=== PATIENT | male | born 1950 | race Caucasian/White ===

== ENCOUNTER 2017-11-13 05:45 | Inpatient (IN) | payer OTHER ==
[2017-11-13] MEDS ORDERED: GABAPENTIN 300 MG CAP PO ONE (05:58)
[2017-11-13] MEDS ORDERED: morphINE PF 5 MG/10 ML INJ IT ONE (05:58)
[2017-11-13] MEDS ORDERED: ceFAZolin 2 GM/SWFI 2 GM/20 ML SYR IVP ONE (05:58)
[2017-11-13] MEDS ORDERED: ACETAMINOPHEN 500 MG TAB PO ONE (05:58)
[2017-11-13] MEDS ORDERED: LR 1,000 ML IV ONE (05:59)
[2017-11-13] MEDS ORDERED: LIDOCAINE 1% 2 ML INJ ID PRN (05:59)
[2017-11-13] MEDS ORDERED: BUPIVACAINE 0.25% 30 ML SDV ONE (06:24)
[2017-11-13] MEDS ORDERED: THROMBIN (BOVINE) 20,000 UNIT VIAL TP ONE (06:24)
[2017-11-13] MEDS ORDERED: CHLORHEXIDINE GLUC HIBICLENS 118 ML BTL TP ONE (06:24)
[2017-11-13] MEDS ORDERED: BACITRACIN 50,000 UNITS/10 ML SYR IRR ONE (06:25)
--- NOTE | 2017-11-13 06:46 | PDGENHP ---
History and Physical - Chief Complaint back pain - History of Present Illness Patient came to clinic for his low back issues. He previously underwent a left sided L4/[address] Contreras Oct 2004. Surgery was for back and leg pain and he does not feel surgery helped. He noted worsening low back pain following that surgery. He has been seeing Pain Management with facet ablations ever [address] Grimm in [place]. More recently he has noted that the pain is now radiating into the left leg as well. He went to Dr Upton in [place] at [facility] and came to clinic for an opinion. The pain is located into the left low back and will radiate into the lateral thigh and into the left lateral calf and into the left lateral ankle. Pain is like an aching pain. Denies any weakness. No symptoms into the right leg. No associated trauma or injury Denies any bowel or bladder incontinence. Pain Scale Worse: 7/10 Best: 3/10 Pain Worsened with: lifting, pulling Pain Improved with: exercise, walking Modalities tried: Spinal injections Dr Grimm February 2016 - L4/5/S1 bilateral facet ablation Physical Therapy no Gyro Compass Tester no Pain Medications celebrex ibuprofen tylenol Muscle Relaxants no Gabapentin no Lyrica no Oral steroids or Medrol Dose Pack no Mr Bartholomew came to clinic for a several year history of ongoing low back pain and left leg radiculopathy. His symptoms have been treated and stable with injections/ablations with Dr Head in [facility]. Dr Pressley reviewed his lumbar spine MRI which shows a previous left sided L4/5 hemilaminotomy with severe foraminal stenosis and nerve compression. There is severe disc height loss at the L4/5/S1 levels with advanced degenerative changes. Dr Pressley discussed the risks, benefits, and various treatment alternatives, including no intervention. He is interested in surgery because he has been getting injections into his spine every 2 years since about 2004. He is also taking Celebrex and Ibuprofen for pain control, but he is seeking a permanent intervention for his symptoms as he likes to be very active. With regards to the surgical intervention, we discussed the pre and post-op expectations and the procedure in great detail. Surgery would entail a redo left sided L4/5 facetectomy/hemilaminotomy and TLIF with left sided L5/S1 TLIF and posterior fusion L4-S1. We also discussed the increased risk of the procedure given that it is a redo level. The patient elected to move forward with surgery. Mr. Bartholomew presents today for surgery and wishes to proceed with the above mentioned procedure. History Information - Allergies/Home Medication List Allergies/Adverse Reactions: No Known Allergies Allergy (Verified 10/13/17 17:44) Home Medications: Pravastatin Sodium [Pravachol] 40 mg PO DAILY 10/11/17 [Last Taken 11/12/17 21: 00] Ranitidine HCl [Zantac] 300 mg PO BID 10/11/17 [Last Taken 11/13/17 05:00] Tamsulosin HCl [Flomax 0.4 MG (*)] 0.4 mg PO DAILY 10/11/17 [Last Taken 05:00] Testosterone 60 gm TD DAILY 10/11/17 [Last Taken 11/11/17] Valacyclovir HCl [Valtrex] 1,000 mg PO DAILY 10/11/17 [Last Taken 11/12/17 21:00 ] I have personally reviewed and updated: family history (non contributory), medical history, social history (non smoker, social ETOH use), surgical history (L45 spine surgery) - Social History Smoking Status: Never smoked Review of Systems Review of Systems: Constitutional: Reports: no symptoms EENMT: Reports: no symptoms Cardiac: Reports: no symptoms Respiratory: Reports: no symptoms Gastrointestinal: Reports: no symptoms Genitourinary: Reports: no symptoms Muscolosketal: Reports: back pain Skin: Reports: no symptoms Physical Exam Physical Exam: Temp Pulse Resp BP Pulse Ox 36.6 C 69 16 139/83 H 94 11/13/17 06:14 11/13/17 06:14 11/13/17 06:14 11/13/17 06:14 11/13/17 06:14 Constitutional: no apparent distress, other (VSS) Eyes: EOMI Ears, Nose, Mouth, Throat: moist mucous membranes Skin: normal color Neurologic: AAOx3, other (MAEx4, Motor 5/5 BUE/BLE with the exception of L great toe 5-/5) Lab Data & Imaging Review Imaging Review: Pt's lumbar spine MRI was reviewed and demonstrates: [facility] MRI lumbar spine WO con IMPRESSION: status post left hemilaminotomy at L4-5 with loss in height of the intervertebral disc, mild annular disc bulge, and a 5mm left foraminal through far left lateral protrusion with marginal osteophytic changes. moderate left L4 - L5 subarticular recess narrowing with impingement on the left L5 nerve root an severe left neural foraminal narrowing. loss in height of the L5-S1 intervertebral disc with a mild annular disc bulge with marginal osteophytic changes greatest on the right laterally. Moderate righ neural foraminal narrowing. loss in chuckie of the L2-3 and L3-4 intervertebral disc with an annular disc bulge. loss in chuckie of the L1-2 intervertebral disc with a mild annular disc bulge and a small right foraminal protrusion. Mild right neural foraminal narrowing. Assessment & Plan Assessment: 67 yo M with low back and left leg radiculopathy, imaging demonstrates prior left sided L4/5 hemilaminotomy with severe foraminal stenosis and nerve compression, disc height loss L4/5/S1 with advanced degenerative changes. He presents today for redo left sided L4/5 facetectomy/hemilaminotomy and TLIF with left sided L5/S1 TLIF and posterior fusion L4-S1. Plan: Dr. Pressley has discussed the risks/benefits of surgery with Mr. Bartholomew and written informed consent was obtained to proceed with redo left sided L4/5 facetectomy/hemilaminotomy and TLIF with left sided L5/S1 TLIF and posterior fusion L4-S1. All questions were answered and patient agrees and wishes to proceed with the plan. Patient was marked. D/w Dr Pressley.
--- NOTE | 2017-11-13 07:13 | PDHPUP ---
History & Physical Update H&P update statement: This history and physical update is based on an assessment of the patient which was completed after admission or registration (within 24 hours), but prior to the surgery/procedure. H&P update: H&P reviewed & patient examined, no change in patient's condition since H&P completed (I met with the patient this morning and reviewed the surgical procedure and complications. He wishes to proceed. Consents have been signed and site marked.)
[2017-11-13] MEDS ORDERED: ALBUTEROL 3 ML DEYVIAL IH PRN (07:19)
[2017-11-13] MEDS ORDERED: HYDROmorphONE/DILAUDID 1 MG/ML INJ IVP PRN ×2 (07:19→12:27)
[2017-11-13] MEDS ORDERED: MIDAZOLAM 2 MG/2 ML VIAL IVP ONE (07:19)
[2017-11-13] MEDS ORDERED: ONDANSETRON 4 MG/2 ML VIAL IVP PRN (07:19)
[2017-11-13] MEDS ORDERED: NALOXONE HCL 0.4 MG/ML INJ IVP PRN (07:19)
[2017-11-13] MEDS ORDERED: DEXAMETHASONE 4 MG/ML VIAL IVP PRN (07:19)
[2017-11-13] MEDS ORDERED: fentaNYL 100 MCG/2 ML INJ IVP PRN (07:19)
--- NOTE | 2017-11-13 07:20 | PDANEPAE ---
ANE History of Present Illness L4-L5 TLIF ANE Past Medical History - Cardiovascular History Hx Hypertension: No Hx Arrhythmias: No Hx Chest Pain: No Hx Coronary Artery / Peripheral Vascular Disease: No Hx CHF / Valvular Disease: No Hx Palpitations: No - Pulmonary History Hx COPD: No Hx Asthma/Reactive Airway Disease: No Hx Recent Upper Respiratory Infection: No Hx Oxygen in Use at Home: No Hx Sleep Apnea: No Sleep Apnea Screening Result - Last Documented: Negative - Neurologic History Hx Cerebrovascular Accident: No Hx Seizures: No Hx Dementia: No - Endocrine History Hx Diabetes: No - Renal History Hx Renal Disorders: No - Liver History Hx Hepatic Disorders: No - Neurological & Psychiatric Hx Hx Neurological and Psychiatric Disorders: No - Cancer History Hx Cancer: No - Congenital Disorder History Hx Congenital Disorders: No - GI History Hx Gastrointestinal Disorders: Yes Gastrointestinal History Comment: reflux,gerd - Other Health History Other Health History: none - Chronic Pain History Chronic Pain: Yes (L shoulder,neck) - Surgical History Prior Surgeries: knee scope ANE Review of Systems Review of Systems: - Exercise capacity METS (RN): 4 METS ANE Patient History - Allergies Allergies/Adverse Reactions: No Known Allergies Allergy (Verified 10/13/17 17:44) - Home Medications Home Medications: Pravastatin Sodium [Pravachol] 40 mg PO DAILY 10/11/17 [Last Taken 11/12/17 21: 00] Ranitidine HCl [Zantac] 300 mg PO BID 10/11/17 [Last Taken 11/13/17 05:00] Tamsulosin HCl [Flomax 0.4 MG (*)] 0.4 mg PO DAILY 10/11/17 [Last Taken 05:00] Testosterone 60 gm TD DAILY 10/11/17 [Last Taken 11/11/17] Valacyclovir HCl [Valtrex] 1,000 mg PO DAILY 10/11/17 [Last Taken 11/12/17 21:00 ] - NPO status NPO Since - Liquids (Date): 11/12/17 NPO Since - Liquids (Time): 18:00 NPO Since - Solids (Date): 11/12/17 NPO Since - Solids (Time): 18:00 - Smoking Hx Smoking Status: Never smoked - Family Anes Hx Family Hx Anesthesia Complications: none ANE Labs/Vital Signs - Vital Signs Blood Pressure: 139/83 Heart Rate: 69 Respiratory Rate: 16 O2 Sat (%): 94 Height: 177.8 cm Weight: 72.575 kg ANE Physical Exam - Airway Neck exam: FROM Mallampati Score: Class 2 - Pulmonary Pulmonary: clear to auscultation - Cardiovascular Cardiovascular: regular rate and rhythym - ASA Status ASA Status: II ANE Anesthesia Plan Anesthesia Plan: general endotracheal anesthesia
[2017-11-13] MEDS ORDERED: PROPOFOL/EMULSION 500 MG/50 ML BOTTLE IV ONE ×4 (07:35→10:40)
[2017-11-13] MEDS ORDERED: REMIFENTANIL HCL 1 MG VIAL ONE ×4 (07:38→10:42)
[2017-11-13] MEDS ORDERED: SUCCINYLCHOLINE CHLORIDE 200 MG/10 ML SYR IVP ONE (07:46)
[2017-11-13] MEDS ORDERED: PHENYLEPHRINE HCL 100 MCG/ML SYR ONE (08:10)
[2017-11-13] MEDS ORDERED: ROCURONIUM 50 MG/5 ML VIAL ONE (08:10)
[2017-11-13] MEDS ORDERED: morphINE PF 5 MG/10 ML INJ ONE (09:11)
[2017-11-13] MEDS ORDERED: VASOPRESSIN 20 UNIT/ML VIAL ONE (09:48)
[2017-11-13] MEDS ORDERED: HYDROmorphONE/DILAUDID 2 MG/ML INJ ONE (10:43)
[2017-11-13] MEDS ORDERED: DEXAMETHASONE 4 MG/ML VIAL ONE ×2 (11:36)
[2017-11-13] MEDS ORDERED: ONDANSETRON 4 MG/2 ML VIAL ONE (11:36)
--- NOTE | 2017-11-13 12:08 | POSTANESTH ---
Post Anesthetic Evaluation Cardiovascular Status: Normal, Stable Respiratory Status: Normal, Stable Level of Consciousness/Mental Status: Can Participate in Eval, Alert and Oriented Pain Control: Adequate, Prn Tx Ordered Nausea/Vomiting Control: Adequate, Prn Tx Ordered Complications Possibly Related to Anesthesia: None Noted
[2017-11-13] MEDS ORDERED: MAGNESIUM HYDROXIDE 30 ML UDCUP PO PRN (12:27)
[2017-11-13] MEDS ORDERED: diphenhydrAMINE 25 MG CAP PO PRN (12:27)
[2017-11-13] MEDS ORDERED: BISACODYL 10 MG SUPP PR PRN (12:27)
[2017-11-13] MEDS ORDERED: LACTULOSE 20 GM/30 ML UDCUP PO PRN (12:27)
[2017-11-13] MEDS ORDERED: POLYETHYLENE GLYCOL 3350 17 GM PKT PO PRN (12:27)
[2017-11-13] MEDS ORDERED: NS W/ 20 KCl/L 1,000 ML IV SCH (12:30)
--- NOTE | 2017-11-13 12:34 | POSTOPPROG ---
Post Op Note Date of Operation: 11/13/17 Surgeon: Jody Lal Sap Bw Architect: Marcio Lal PA-C Anesthesiologist: Frandy Anesthesia: GET(General Endotracheal) Pre-op Diagnosis: lumbar degenerative disc disease Post-op Diagnosis: same Indication: nerve pain, radiculopathy Procedure: redo L45 TLIF, L5S1 TLIF, L4-S1 PSF Findings: Please see dictation Inf/Abcess present in the surg proc area at time of surgery?: No Depth: Organ Space EBL: 100-500 Complications: none Drains: Dinesh Darden Specimen(s): none PA Addendum - Addendum .: S: Pt awake in PACU, denies pain O: AAOx3 NAD VSS MAEx4 Motor 5/5 BUE/BLE with exception of L EHL 5-/5 +LT Incision cdi A: 67 yo M s/p redo L45 TLIF, L5S1 TLIF, L4-S1 PSF P: PT/OT Brace when OOB TEDs, SCDs, lovenox POD#1 urinary retention - pt states he has had issues with retention post op, home dose of flomax increased from 0.4mg to 0.8mg bowel protocol Post op xrays pending DC gonzales in AM Pain management - duramorph given Pt seen by Dr Pressley as well Call NS with any questions or concerns
--- NOTE | 2017-11-13 14:07 | GOP ---
[f rep st] OPERATIVE REPORT DATE OF OPERATION: 11/13/2017 SURGEON: Ger Pressley MD THEATRICAL AGENT: BRAYAN Valencia. ANESTHESIA: General. PREOPERATIVE DIAGNOSIS: 1. Lumbar spondylosis L4-L5 and L5-S1 with bilateral lateral recess foraminal stenosis left side L4-L5 and right side L5-S1. 2. Lower extremity radiculopathy, left greater than right. 3. Left lower extremity weakness. 4. Treatment refractory to nonoperative intervention. POSTOPERATIVE DIAGNOSIS: 1. Lumbar spondylosis L4-L5 and L5-S1 with bilateral lateral recess foraminal stenosis left side L4-L5 and right side L5-S1. 2. Lower extremity radiculopathy, left greater than right. 3. Left lower extremity weakness. 4. Treatment refractory to nonoperative intervention. PROCEDURE PERFORMED: 1. Posterior arthrodesis with approach to L4, L5, and S1. 2. Posterolateral fusion with bilateral pedicle screw placement into L4, L5, and S1 from the [employer] 4.75 system. 3. Left-sided L4-L5 redo hemilaminotomy, medial facetectomy, foraminotomy, and nerve root decompression. 4. Left-sided L4-L5 transforaminal lumbar interbody fusion with an 8 x 23 mm titanium-coated PEEK cage filled with morselized autograft and allograft. 5. Left-sided L5-S1 hemilaminotomy with mesial facetectomy, foraminotomy, and nerve decompression. 6. Left-sided L5-S1 transforaminal lumbar interbody fusion with an 8 x 26 mm titanium-coated PEEK cage filled with morselized autograft and allograft. 7. Use of intraoperative fluoroscopy, less than 1 hour physician time. 8. Use of neuromonitoring. 9. Use of intraoperative 3D Stealth Navigation. 10. Posterolateral fusion on the right between L4 and S1 with morselized autograft and allograft. 11. Injection of preservative-free intrathecal narcotics. FINDINGS: per imaging SPECIMENS: None. ESTIMATED BLOOD LOSS: 150 mL. INDICATIONS: The patient is a 67-year-old gentleman who has ongoing low back pain with left lower extremity radiculopathy including some left-sided weakness of his foot. He had evidence of spondylosis at L4-L5 and L5-S1. After discussion of the risks, benefits, and treatment alternatives after failing nonoperative intervention, he decided to proceed forth with the surgery as described above. DESCRIPTION OF PROCEDURE: The patient was brought to the operating theater and underwent general endotracheal anesthesia without complications. He had Venodynes, HIRAM hose, and appropriate lines placed by Anesthesia. He was flipped prone to the Dinesh table, and all bony processes were inspected and were padded. The previous lumbar incision was identified. This area then marked. A time-out was completed per protocol and the patient received antibiotics within 1 hour of incision. The incision was infiltrated with Marcaine with epinephrine and taken down with the scalpel blade. Using monopolar, the incision was taken down the midline through the lumbodorsal fascia and a subperiosteal dissection carried out to the transverse processes bilaterally of L4, L5, and S1. Care was taken to avoid the previous hemilaminotomy defect at the left L4-5 level. Deep retractors were placed to maintain our exposure. We confirmed our level using the lateral fluoroscopy. We attached the 3D Stealth Navigation clamp to the spinous process of L5 and completed a 3D Stealth Navigation spin. Using 3D Stealth Navigation, we placed the captain airline pilot holes for the bilateral pedicle screws into L4, L5, and S1. All holes were manually palpated with no evidence of any cortical breaches. We then tapped and placed 6.5 x 55 mm screws bilaterally in L4, L5, and 6.5 x 50 mm screws bilaterally in S1 from the [employer] Solera 4.75 system. Another 3D Stealth Navigation spin demonstrated good placement of the hardware. At this point the microscope was brought into the field to assist with microscopic dissection and to maintain illumination and magnification. We first moved up to L4-5 level where we completed a left-sided redo hemilaminotomy at the L4-5 level with an aggressive facetectomy resection of the pars and completed a foraminotomy. We then completed a left-sided L4-5 diskectomy and prepared the cartilaginous endplates. We measured the interbody space and placed an 8 x 26 mm titanium-coated PEEK cage filled with morselized autograft and allograft anteriorly and towards the midline. We packed additional morcellized autograft into the disk space for the interbody fusion and let down the distraction. We then moved down to L5-S1 where we completed a left-sided L5-S1 facetectomy with resection of the pars and foraminotomy and nerve decompression. We completed a left-sided L5-S1 diskectomy and prepared the cartilaginous endplates. We measured the interbody space and placed an 8 x 26 mm titanium-coated PEEK cage filled with morselized autograft and allograft anteriorly and towards the midline. We packed an additional morcellized autograft into the disk space for the interbody fusion. We let down the distraction and decorticated the bone on the right side between L4 and S1. We irrigated the wound copiously with bacitracin irrigation. We placed 2 lordotic rods into the heads of the screws between L4 and S1 and secured them down with cap screws which were then tightened per the insurance account manager 's setting. We placed morselized autograft and allograft on the right side between L4 and S1 for the posterolateral fusion. We injected preservative-free intrathecal narcotics and left a drain in the subfascial space. The wound was then closed in multiple layers using Vicryl sutures for the deep layers and Dermabond for the skin. The patient's wounds were dressed sterilely. He was flipped supine onto the transfer cart where he was awakened, extubated, and taken to recovery room in stable condition. There were no complications and no noted changes on neuromonitoring throughout the procedure. COMPLICATIONS: None. /[id number]/MODL MTDD
[2017-11-13] MEDS: ACETAMINOPHEN 500 MG TAB PO SCH ×2 (18:17→22:18)
[2017-11-13] MEDS: ceFAZolin 2 GM/DEXTROSE 100 ML IV SCH ×2 (18:21→23:53)
[2017-11-13] MEDS: ONDANSETRON 4 MG/2 ML VIAL IVP PRN (18:27)
[2017-11-13] MEDS: POLYETHYLENE GLYCOL 3350 17 GM PKT PO SCH ×2 (18:51→22:19)
[2017-11-13] MEDS ORDERED: NON-FORMULARY NEW DRUG (Ranitidine Hcl [Zantac] 300 MG) PO SCH (21:00)
[2017-11-13] MEDS ORDERED: SENNOSIDES 17.6 MG/10 ML UDL PO SCH (21:00)
[2017-11-13] MEDS: ONDANSETRON DISINTEGRATING 4 MG TAB PO PRN (22:17)
[2017-11-13] MEDS: FAMOTIDINE 20 MG TAB PO SCH (22:18)
[2017-11-13] MEDS: SENNOSIDES/DOCUSATE SODIUM TAB PO SCH (22:18)
[2017-11-13] MEDS: PRAVASTATIN SODIUM 40 MG TAB PO SCH (22:29)
[2017-11-13] MEDS: METHOCARBAMOL 750 MG TAB PO PRN (22:30)
[2017-11-13] MEDS: MELATONIN 3 MG TAB PO SCH (22:38)
[2017-11-14] MEDS: POLYETHYLENE GLYCOL 3350 17 GM PKT PO SCH ×4 (02:25→20:12)
[2017-11-14] MEDS: oxyCODONE IR 5 MG TAB PO PRN ×3 (04:38→22:07)
[2017-11-14] MEDS: ONDANSETRON 4 MG/2 ML VIAL IVP PRN (05:06)
[2017-11-14] MEDS: ACETAMINOPHEN 500 MG TAB PO SCH ×3 (05:59→22:09)
[2017-11-14] MEDS: METHOCARBAMOL 750 MG TAB PO PRN (05:59)
[2017-11-14] MEDS ORDERED: DIAZEPAM 5 MG TAB PO PRN (08:04)
[2017-11-14] MEDS ORDERED: SCOPOLAMINE HYDROBROMIDE 1 MG/3 DAYS PATCH TD SCH (08:15)
[2017-11-14] MEDS: SENNOSIDES/DOCUSATE SODIUM TAB PO SCH ×2 (08:19→20:13)
[2017-11-14] MEDS: TAMSULOSIN HCL 0.4 MG CAP PO SCH (08:19)
[2017-11-14] MEDS: valACYclovir 500 MG TAB PO SCH (08:19)
[2017-11-14] MEDS: FAMOTIDINE 20 MG TAB PO SCH ×2 (08:19→20:13)
[2017-11-14] MEDS: ENOXAPARIN 40 MG/0.4 ML SYR SC SCH (08:20)
[2017-11-14] MEDS: TESTOSTERONE TD SCH (08:27)
--- NOTE | 2017-11-14 08:34 | NEUSURGPN ---
Assessment/Plan: A: 67 yo M s/p redo L45 TLIF, L5S1 TLIF, L4-S1 PSF POD#1 P: PT/OT Brace when OOB TEDs, SCDs, lovenox POD#1 urinary retention - pt states he has had issues with retention post op, home dose of flomax increased from 0.4mg to 0.8mg. DC gonzales this AM after meds/ breakfast bowel protocol Add scopolomine patch for nausea add valium, can take before bed as may help him fall asleep. Discussed that we do not Rx sleep meds Post op xrays pending Pain management - duramorph given Pt seen by Dr Pressley as well Call NS with any questions or concerns Subjective: Pt resting in bed, he did not sleep well last pm. Vomited several times after eating. Denies significant back or leg pain. Objective: AAOx3 NAD VSS MAEx4 Motor 5/5 BLE +LT EMILY drain productive Gonzales in place Urinary Catheter in Place: Yes Urinary Catheter Indication: Surgical Requirement (to be removed today) Catheter Insertion Date: 11/13/17 - Physician Discussed Patient with : Wendie Patient Seen by : Wendie Neurosurgery Physical Exam - Vitals, I&O, Labs I and O 11/13/17 11/14/17 11/15/17 05:59 05:59 05:59 Intake Total 2780 450 Output Total 1060 Balance 1720 450 Weight 72.575 kg Intake: Oral (ml) 100 450 IV Intake (ml) 1800 IV Infused (ml) 880 NS W/ 20 KCl/L 1,000 ml @ 660 75 mls/hr IV CONT PATRICK Rx #:[id number] ceFAZolin 2 GM/DEXTROSE 220 100 ml @ 200 mls/hr IV Q8H PATRICK Rx#:[id number] Output: Urine (ml) 770 Catheter 770 EMILY Drain Output (ml) 290 #1 Right Posterior Back 290 Dinesh Darden Other: Intake Quantity Yes Sufficient Number of Emesis 1 Occurrences Vital Signs Temp Pulse Resp BP Pulse Ox 36.7 C 71 16 109/62 94 11/14/17 08:00 11/14/17 08:00 11/14/17 08:00 11/14/17 08:00 11/14/17 08:00 ICD10 Worksheet Patient Problems: Problems Problem Status Onset Lumbar degenerative disc disease Acute - ICD10 Problem Qualifiers (1) Lumbar degenerative disc disease
[2017-11-14] MEDS ORDERED: NON-FORMULARY NEW DRUG (Valacyclovir Hcl [Valtrex] 1,000 MG) PO SCH (09:00)
[2017-11-14] MEDS: ONDANSETRON DISINTEGRATING 4 MG TAB PO PRN (09:57)
--- NOTE | 2017-11-14 15:05 | ASMTCMCOM ---
CM Note CM Note Notes: PT/OT clear pt for home. Anticipate pt will d/c w family support when medically stable. No CM d/c needs identified at this time. CM available for changes/needs. Date Signed: 11/14/2017 03:04 PM Electronically Signed By:SHANIQUA Zaldivar
[2017-11-14] MEDS: PRAVASTATIN SODIUM 40 MG TAB PO SCH (20:13)
[2017-11-14] MEDS: MELATONIN 3 MG TAB PO SCH (22:07)
[2017-11-15] MEDS: METHOCARBAMOL 750 MG TAB PO PRN (04:11)
[2017-11-15] MEDS: ACETAMINOPHEN 500 MG TAB PO SCH (06:07)
[2017-11-15] MEDS: oxyCODONE IR 5 MG TAB PO PRN (06:08)
[2017-11-15 07:40] VITALS: BP 99/57; PULSE 74; RESP 14; TEMP 98.2; O2SAT 94
--- NOTE | 2017-11-15 09:17 | NEUSURGPN ---
Date of Surgery: 11/13/17 Post Op Day: 2 Assessment/Plan: A: 67 yo M s/p redo L45 TLIF, L5S1 TLIF, L4-S1 PSF POD#2 P: - neuro stable - pain controlled on oral regimen - voiding without difficulty - remove drain - tolerating a diet - wearing brace when out of bed - PT/OT - postop x-rays stable - home today Subjective: having localized back pain, controlled. No leg symptoms. Objective: Awake. Alert. PERRL. EOMI Facial expression symmetrical Muscle strength full at 5/5 Sensation intact Catheter Insertion Date: 11/13/17 - Physician Discussed Patient with Dr.: Wendie Neurosurgery Physical Exam - Vitals, I&O, Labs I and O 11/14/17 11/15/17 11/16/17 05:59 05:59 05:59 Intake Total 2780 750 Output Total 1060 1475 Balance 1720 -725 Weight 72.575 kg Intake: Oral (ml) 100 750 IV Intake (ml) 1800 IV Infused (ml) 880 NS W/ 20 KCl/L 1,000 ml @ 660 75 mls/hr IV CONT PATRICK Rx #:[id number] ceFAZolin 2 GM/DEXTROSE 220 100 ml @ 200 mls/hr IV Q8H PATRICK Rx#:[id number] Output: Urine (ml) 770 1025 Catheter 770 375 Urinal 650 Emesis (ml) 450 EMILY Drain Output (ml) 290 #1 Right Posterior Back 290 Dinesh Darden Other: Intake Quantity Yes Sufficient Bladder Scan Volume (ml) Urinal 308 Post Void Residual Scan Volume (ml) Urinal 388 Number of Emesis 1 1 Occurrences Vital Signs Temp Pulse Resp BP Pulse Ox 36.8 C 74 14 99/57 L 94 11/15/17 07:38 11/15/17 07:38 11/15/17 07:38 11/15/17 07:38 11/15/17 07:38 ICD10 Worksheet Patient Problems: Problems Problem Status Onset Lumbar degenerative disc disease Acute
[2017-11-15] MEDS: TAMSULOSIN HCL 0.4 MG CAP PO SCH (09:34)
[2017-11-15] MEDS: FAMOTIDINE 20 MG TAB PO SCH (09:34)
[2017-11-15] MEDS: valACYclovir 500 MG TAB PO SCH (09:34)
[2017-11-15] MEDS: ENOXAPARIN 40 MG/0.4 ML SYR SC SCH (09:35)
[2017-11-15] MEDS: SENNOSIDES/DOCUSATE SODIUM TAB PO SCH (09:35)
[2017-11-15] MEDS: POLYETHYLENE GLYCOL 3350 17 GM PKT PO SCH ×2 (09:35→09:36)
[2017-11-15] MEDS: TESTOSTERONE TD SCH (09:38)
[2017-11-17] MEDS ORDERED: PATCH REMOVAL 1 EA PATCH TD SCH (08:04)
== END 2017-11-15 12:13 | disposition home or self-care (01) | DRG 460 ==
LOC: F3N 05:45
PROVIDERS: ADMIT Neurological Surgery; ATTEND Neurological Surgery
PROC: 0SG30AJ Fusion of Lumbosacral Joint with Interbody Fusion Device, Posterior Approach, Anterior Column, Open Approach (ICD-10-PCS; principal; 2017-11-13 07:45)
PROC: 0SG30JJ Fusion of Lumbosacral Joint with Synthetic Substitute, Posterior Approach, Anterior Column, Open Approach (ICD-10-PCS; principal; 2017-11-13 07:45)
PROC: 8E0WXBZ Computer Assisted Procedure of Trunk Region (ICD-10-PCS; principal; 2017-11-13 07:45)
PROC: 01NB0ZZ Release Lumbar Nerve, Open Approach (ICD-10-PCS; principal; 2017-11-13 07:45)
PROC: 4A1004G Monitoring of Central Nervous Electrical Activity, Intraoperative, Open Approach (ICD-10-PCS; principal; 2017-11-13 07:45)
PROC: 0SG00JJ Fusion of Lumbar Vertebral Joint with Synthetic Substitute, Posterior Approach, Anterior Column, Open Approach (ICD-10-PCS; principal; 2017-11-13 07:45)
PROC: 0SG00AJ Fusion of Lumbar Vertebral Joint with Interbody Fusion Device, Posterior Approach, Anterior Column, Open Approach (ICD-10-PCS; principal; 2017-11-13 07:45)
DX: M51.36 Other intervertebral disc degeneration, lumbar region (principal); M48.061 Spinal stenosis, lumbar region without neurogenic claudication; M47.26 Other spondylosis with radiculopathy, lumbar region; I25.83 Coronary atherosclerosis due to lipid rich plaque; G47.00 Insomnia, unspecified; N28.1 Cyst of kidney, acquired
CPT/HCPCS: 97116-GP; 97161-GP; 97165-GO; C1713; G8978-GP-CI; G8979-GP-CI; G8980-GP-CI; G8987-GO-CI; G8988-GO-CI; G8989-GO-CI; J0171; J0330; J0690; J1100; J1170; J1650; J2250; J2274; J2370; J2405; J2704